=== PATIENT | female | born 1955 | race Caucasian/White ===

== ENCOUNTER 2018-09-09 10:41 | Outpatient (CLI) | payer OTHER | END 2018-09-09 10:56 | disposition home or self-care (01) | LOC: TOM 10:41 | DX: R22.1 Localized swelling, mass and lump, neck (principal) | CPT/HCPCS: 70492; Q9965 ==

== ENCOUNTER → 2018-11-01 06:00 | Outpatient (CLI) | payer OTHER | END | disposition home or self-care (01) | LOC: LAB 06:00 → ADM 13:30 → AMB-ENDOS 11-09 13:30 → EDSTATUS 11-09 13:30 | DX: D12.6 Benign neoplasm of colon, unspecified (principal); K63.5 Polyp of colon; R19.4 Change in bowel habit; Z01.812 Encounter for preprocedural laboratory examination ==

== ENCOUNTER 2018-12-21 06:39 | Day surgery (SDC) | payer OTHER | END 2018-12-21 14:46 | disposition home or self-care (01) | LOC: AMB-ENDOS 06:39 | DX: D12.5 Benign neoplasm of sigmoid colon (principal); K57.30 Diverticulosis of large intestine without perforation or abscess without bleeding ==

== ENCOUNTER 2022-05-21 10:16 | Outpatient (CLI) | payer OTHER | END 2022-05-21 10:42 | disposition home or self-care (01) | LOC: RAD 10:16 | PROVIDERS: ATTEND Orthopaedic Surgery Adult Reconstructive Orthopaedic Surgery | DX: M25.511 Pain in right shoulder (principal); M25.512 Pain in left shoulder; M75.121 Complete rotator cuff tear or rupture of right shoulder, not specified as traumatic; M75.122 Complete rotator cuff tear or rupture of left shoulder, not specified as traumatic | CPT/HCPCS: 73221 ==